=== PATIENT | male | born 1985 | race American Indian/Alaskan Native ===

== ENCOUNTER 2016-06-28 21:38 | Emergency (ER) | payer OTHER ==
[2016-06-29] MEDS ORDERED: VALIUM PO ONE (01:29)
[2016-06-29] MEDS ORDERED: TORADOL IM ONE (01:29)
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
[2016-06-29 03:25] VITALS: BP 138/90
== END 2016-06-29 03:31 | disposition home or self-care (01) ==
LOC: ED 21:38
DX: S13.4XXA Sprain of ligaments of cervical spine, initial encounter (principal); M54.5 Low back pain; F17.200 Nicotine dependence, unspecified, uncomplicated; V49.9XXA Car occupant (driver) (passenger) injured in unspecified traffic accident, initial encounter; Y92.488 Other paved roadways as the place of occurrence of the external cause; Y99.8 Other external cause status
CPT/HCPCS: 72100; 72125; 96372; 99283; J1885